=== PATIENT | male | born 1965 | race Caucasian/White ===

== ENCOUNTER 2024-11-14 15:08 | Emergency (ER) | payer OTHER ==
--- NOTE | 2024-11-14 16:25 | ED ---
ENT HPI - General Source: patient, RN notes reviewed Mode of arrival: ambulatory Limitations: no limitations - History of Present Illness MD complaint: tooth pain Onset/Timin Severity scale (1-10): 7 <Stone Richter - Last Filed: 11/14/24 16:23> <Xiang Morgan - Last Filed: 11/14/24 22:41> - General Stated complaint: Dental pain Time Seen by Provider: 11/14/24 15:22 - History of Present Illness Initial comments: Quick note: This is a 59-year-old male presenting with right upper tooth pain x 3 days. Patient states he recently lost his right upper canine with ongoing right facial pain radiating to his right ear. Endorses receiving Augmentin, stating exposed nerve root is causing ongoing pain. Denies other symptoms or concerns. (Stone Richter) 59-year-old male presenting with chief complaint of dental pain. Patient has a fractured right upper canine. He has facial pain that is radiating into his right ear. He started taking Augmentin today. He is complaining of pain that is difficult to control at home. No difficulty breathing or swallowing. No fevers or chills. No trismus. (Xiang Morgan) - Related Data Previous Rx's Medication Instructions Recorded HYDROcodone/APAP 7.5-325MG [[place] 1 tab PO Q6HR PRN 3 Days #12 tab 11/14/24 7.5-325] Allergies Allergy/AdvReac Type Severity Reaction Status Date / Time codeine Allergy Unknown Verified 11/14/24 16:34 tramadol [From Ultram] Allergy Unknown Verified 11/14/24 16:34 Review of Systems ROS Other: All systems not noted in ROS Statement are negative. <Stone Richter - Last Filed: 11/14/24 16:23> ROS Other: All systems not noted in ROS Statement are negative. <Xiang Morgan - Last Filed: 11/14/24 22:41> ROS Statement: Those systems with pertinent positive or pertinent negative responses have been documented in the HPI. General Exam <Stone Richter - Last Filed: 11/14/24 16:23> Limitations: no limitations General appearance: alert, in no apparent distress Head exam: Present: atraumatic, normocephalic Eye exam: Present: normal appearance, EOMI Expanded Mouth exam: Present: tongue normal. Absent: drooling, trismus, muffled voice Teeth exam: Present: fractured tooth #, dental tenderness # Throat exam: normal inspection Neck exam: Present: normal inspection. Absent: meningismus Respiratory exam: Absent: respiratory distress Cardiovascular Exam: Present: regular rate Neurological exam: Present: alert, oriented X3 Psychiatric exam: Present: normal affect, normal mood Skin exam: Present: warm, dry <Xiang Morgan - Last Filed: 11/14/24 22:41> - General Exam Comments Initial Comments: Visual Physical Exam Vital signs reviewed General: Well-appearing, nontoxic, no acute distress. Head: Normocephalic, atraumatic Eyes: PERRLA, EOMI ENT: Airway patent Chest: Nonlabored breathing Skin: No visual rash, normal skin tone Neuro: Alert and oriented 3 Musculoskeletal: No gross abnormalities (Stone Richter) Course Vital Signs 11/14/24 16:34 Temperature 98.2 F Pulse Rate 67 Respiratory 18 Rate Blood Pressure 154/83 O2 Sat by Pulse 96 Oximetry Medical Decision Making <Stone Richter - Last Filed: 11/14/24 16:23> <Xiang Morgan - Last Filed: 11/14/24 22:41> - Medical Decision Making I completed the quick note portion of this chart signed ZAIN Walsh (Stone Richter) Was pt. sent in by a medical professional or institution ([facility], [facility], urgent care, hospital, or longterm...) When possible be specific @ -No Did you speak to anyone other than the patient for history (EMS, parent, family, police, friend...)? What history was obtained from this source @ -No Did you review nursing and triage notes (agree or disagree)? Why? @ -I reviewed and agree with nursing and triage notes Were old charts reviewed (outside hosp., previous admission, EMS record, old EKG, old radiological studies, urgent care reports/EKG's, longterm records)? Report findings @ -No old charts were reviewed Differential Diagnosis (chest pain, altered mental status, abdominal pain women, abdominal pain men, vaginal bleeding, weakness, fever, dyspnea, syncope, headache, dizziness, GI bleed, back pain, seizure, CVA, palpatations, mental health, musculoskeletal)? @ -Differential includes toothache, dental abscess, Dinesh's angina, this is not an all-inclusive list EKG interpreted by me (3pts min.). @ -As above X-rays interpreted by me (1pt min.). @ -None done CT interpreted by me (1pt min.). @ -None done U/S interpreted by me (1pt. min.). @ -None done What testing was considered but not performed or refused? (CT, X-rays, U/S, labs)? Why? @ -None What meds were considered but not given or refused? Why? @ -None Did you discuss the management of the patient with other professionals (professionals i.e. , PA, TUB WASHER, lab, RT, psych nurse, healthcare social worker, manager regulatory, teacher, money position officer, keycase assembler)? Give summary @ -No Was smoking cessation discussed for >3mins.? @ -No Was critical care preformed (if so, how long)? @ -No Were there social determinants of health that impacted care today? How? (Homelessness, low income, unemployed, alcoholism, drug addiction, transportation, low edu. Level, literacy, decrease access to med. care, shelter, rehab)? @ -No Was there de-escalation of care discussed even if they declined (Discuss DNR or withdrawal of care, Hospice)? DNR status @ -No What co-morbidities impacted this encounter? (DM, HTN, Smoking, COPD, CAD, Cancer, CVA, ARF, Chemo, Hep., AIDS, mental health diagnosis, sleep apnea, morbid obesity)? @ -None Was patient admitted / discharged? Hospital course, mention meds given and rou te, prescriptions, significant lab abnormalities, going to OR and other pertinent info. @ -59-year-old male presenting with chief complaint of dental pain. Patient has a fractured right upper canine. He is on Augmentin. He is provided with pain medication. Continue taking antibiotics. Follow-up with dentist. Follow- up with PCP. Report back to ER with any new or worsening symptoms. Discussed return parameters and answered all questions. Patient conveyed verbal understanding and agreed to the plan. I discussed this case in detail with my attending Dr. Farah Undiagnosed new problem with uncertain prognosis? @ -No Drug Therapy requiring intensive monitoring for toxicity (Heparin, Nitro, Insulin, Cardizem)? @ -No Were any procedures done? @ -No Diagnosis/symptom? @ -Toothache Acute, or Chronic, or Acute on Chronic? @ -Acute Uncomplicated (without systemic symptoms) or Complicated (systemic symptoms)? @ -Uncomplicated Side effects of treatment? @ -No Exacerbation, Progression, or Severe Exacerbation? @ -No Poses a threat to life or bodily function? How? (Chest pain, [place], [place], pneumonia, PE, COPD, DKA, ARF, appy, cholecystitis, CVA, Diverticulitis, Homicidal, Suicidal, threat to staff... and all critical care pts) @ -No (Xiang Morgan) Disposition <Stone Richter - Last Filed: 11/14/24 16:23> Is patient prescribed a controlled substance at d/c from ED?: Yes When asked, does pt state using other controlled substances?: No If prescribed controlled substance>3 days was MAPS reviewed?: Prescribed <3 Days If opioid is for acute pain is fill amount 7 days or less?: Yes Time of Disposition: 17:07 <Xiang Morgna - Last Filed: 11/14/24 22:41> Clinical Impression: Toothache Disposition: HOME SELF-CARE Condition: Good Instructions (If sedation given, give patient instructions): Toothache (ED) Additional Instructions: Follow-up with your dentist. Continue taking your antibiotics. Report back to ER with any new or worsening symptoms. Prescriptions: HYDROcodone/APAP 7.5-325MG [[place] 7.5-325] 1 tab PO Q6HR PRN 3 Days #12 tab PRN Reason: Pain Referrals: None,Stated [Primary Care Provider] - 1-2 days
[2024-11-14 16:37] VITALS: BP 154/83; PULSE 67; RESP 18; TEMP 98.2
[2024-11-14] MEDS: HYDROcodone/APAP 7.5-325MG 1 EACH TAB PO ONE (17:19)
== END 2024-11-14 17:20 | disposition home or self-care (01) ==
LOC: EC 15:08
DX: K08.89 Other specified disorders of teeth and supporting structures (principal); Z88.5 Allergy status to narcotic agent; Z88.8 Allergy status to other drugs, medicaments and biological substances
CPT/HCPCS: 99282